=== PATIENT | male | born 2000 | race Caucasian/White ===

== ENCOUNTER 2019-04-15 20:37 | Emergency (ER) | payer BC ==
[~2019-04-15] VITALS: Ht 188 cm; Wt 142.9 kg
[2019-04-15 20:51] VITALS: BP 105/63
--- NOTE | 2019-04-15 21:25 | PHYS DOC ---
Past History Past Medical History: Hypothyroid Past Surgical History: No Surgical History Alcohol Use: None Drug Use: None Adult General Chief Complaint Chief Complaint: LACERATION/AVULSION [facility] HPI 18-year-old male presents with forehead laceration. 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 The patient had immediate bleeding and thought it might need stitches. He denies loss of consciousness. He denies any other injuries. His tetanus is up-to-date. Review of Systems Review of Systems Constitutional: Denies fever or chills [] Eyes: Denies change in visual acuity, redness, or eye pain [] HENT: Denies nasal congestion or sore throat [] Respiratory: Denies cough or shortness of breath [] Cardiovascular: No additional information not addressed in HPI [] GI: Denies abdominal pain, nausea, vomiting, bloody stools or diarrhea [] : Denies dysuria or hematuria [] Musculoskeletal: Denies back pain or joint pain [] Integument: Forehead laceration[] Neurologic: Denies headache, focal weakness or sensory changes [] Endocrine: Denies polyuria or polydipsia [] All other systems were reviewed and found to be within normal limits, except as documented in this note. Allergies Allergies Allergies Coded Allergies Type Severity Reaction Last Updated Verified acetaminophen Allergy Unknown 04/15/19 Yes oseltamivir Allergy Unknown 04/15/19 Yes pheniramine Allergy Unknown 04/15/19 Yes phenylephrine Allergy Unknown 04/15/19 Yes Physical Exam Physical Exam Constitutional: Well developed, well nourished, no acute distress, non-toxic appearance. [] HENT: Normocephalic, atraumatic, bilateral external ears normal, oropharynx moist, no oral exudates, nose normal. [] Eyes: PERRLA, EOMI, conjunctiva normal, no discharge. [] Neck: Normal range of motion, no tenderness, supple, no stridor. [] Cardiovascular:Heart rate regular rhythm, no murmur [] Lungs & Thorax: Bilateral breath sounds clear to auscultation [] Abdomen: Bowel sounds normal, soft, no tenderness, no masses, no pulsatile masses. [] Skin: 2.5 cm linear laceration of the forehead above the right eye[] Back: No tenderness, no CVA tenderness. [] Extremities: No tenderness, no cyanosis, no clubbing, ROM intact, no edema. [] Neurologic: Alert and oriented X 3, normal motor function, normal sensory function, no focal deficits noted. [] Psychologic: Affect normal, judgement normal, mood normal. [] Current Patient Data Vital Signs Vital Signs Date Time Temp Pulse Resp B/P (MAP) Pulse Ox O2 Delivery O2 Flow Rate FiO2 04/15/19 20:51 98.3 96 18 96 Room Air EKG EKG [] Radiology/Procedures Radiology/Procedures [] Course & Med Decision Making Course & Med Decision Making Pertinent Labs and Imaging studies reviewed. (See chart for details) I was able to repair the patient's laceration with sutures. See note for more details. His tetanus is up-to-date. The patient is stable for discharge at this time. [] Dragon Disclaimer Dragon Disclaimer This electronic medical record was generated, in whole or in part, using a voice recognition dictation system. Laceration Repair Lac Repair Indication: A 2.5 cm linear laceration of the forehead. Procedure: Verbal consent was obtained from the patient for suture repair of his forehead laceration. The wound was thoroughly cleaned with saline. 2% lidocaine with epinephrine was used for anesthesia. A total of 1.5 mL was used. Once good anesthesia was achieved, I repaired the laceration with 4 4-0 Ethilon sutures in interrupted fashion. There was good skin approximation. The bleeding was controlled. Dressing was not applied to the area. The patient's tetanus is up-to-date. Total repaired wound length: 2.5 cm Other Items: None The patient tolerated the procedure well. Complications: None. Departure Departure: Impression: Primary Impression: Laceration Disposition: 01 HOME, SELF-CARE Condition: STABLE Referrals: PCP,NO (PCP) Patient Instructions: Sutured Wound Care, Ardo-am-Icnx YANIQUE HERNANDEZ DO Apr 15, 2019 21:25
== END 2019-04-15 21:28 | disposition home or self-care (01) ==
LOC: ER 20:37
DX: S01.81XA Laceration without foreign body of other part of head, initial encounter (principal); E03.9 Hypothyroidism, unspecified; Z88.8 Allergy status to other drugs, medicaments and biological substances; W50.0XXA Accidental hit or strike by another person, initial encounter; Y93.45 Activity, cheerleading; Y92.89 Other specified places as the place of occurrence of the external cause; Y99.8 Other external cause status
CPT/HCPCS: 12011; 99283

== ENCOUNTER → 2020-09-27 | Outpatient (CLI) | payer OTHER | LOC: LAB 09:35 | PROVIDERS: ATTEND Nurse Practitioner Family | DX: R79.89 Other specified abnormal findings of blood chemistry (principal) | CPT/HCPCS: 36415; 84484 ==